=== PATIENT | male | born 1960 | race Caucasian/White ===

== ENCOUNTER 2019-02-02 07:10 | Outpatient (CLI) | payer OTHER, SELFPAY ==
[2019-02-02 07:44] LABS: HCT 44.8 % (40.0-50.0); HGB 15.3 g/dL (13.5-17.5); Mean Corp. HGB Concentration 34.2 g/dL (32.0-36.0); Mean Corpuscular Hemoglobin 32.3 pg (27.0-33.0); Mean Corpuscular Volume 94.5 fL (80-95); Mean Platelet Volume 8.9 fL (8.0-11.0); Platelet Count 265 x1000/uL (130-400); RBC 4.74 m/cumm (4.50-6.00); RBC Distribution Width 12.6 % (11.8-14.1); White Blood Cell Count 3.72 k/cumm (4.4-10.8)
[2019-02-02 08:28] LABS: Absolute Eosinophil Count 0.15 k/cumm (0.0-0.7); Absolute Lymphocyte Count 2.27 k/cumm (1.2-3.4); Absolute Monocyte Count 0.37 k/cumm (0.11-0.7); Absolute Neutrophil Count 0.93 k/cumm (1.2-6.7)
[2019-02-02 08:29] LABS: Diff Comment Manual Differential
[2019-02-02 09:01] LABS: ALT 27 U/L (12-78); AST 23 U/L (15-37); Albumin 3.9 g/dL (3.4-5.0); Alkaline Phosphatase 54 U/L (46-116); Anion Gap 6.9 mmol/L (3-11); BUN 21 mg/dL (7-18); Bilirubin, Total 0.6 mg/dL (0.2-1.0); CO2 30.1 mmol/L (21.0-32.0); Calcium 9.1 mg/dL (8.5-10.1); Chloride 102 mmol/L (98-107); Cholesterol 178 mg/dL (50-200); Glucose 108 mg/dL (70-100); HDL Cholesterol 81 mg/dL (40-60); LDL CHOLESTEROL 82 mg/dL (<100); Potassium 4.1 mmol/L (3.5-5.1); Sodium 139 mmol/L (136-145); Total Protein 6.7 g/dL (6.4-8.2); Triglyceride 61 mg/dL (30-150)
[2019-02-03 09:48] LABS: PSA, Screening 1.1 ng/ml (0-4.5)
== END 2019-02-02 07:30 ==
PROVIDERS: PCP Internal Medicine; Visit Provider Internal Medicine
DX: Z00.00 Encounter for general adult medical examination without abnormal findings (principal); R35.1 Nocturia; C44.91 Basal cell carcinoma of skin, unspecified; L57.0 Actinic keratosis; Z12.5 Encounter for screening for malignant neoplasm of prostate
CPT/HCPCS: 36415; 80053; 80061; 83721; 84153; 85025

== ENCOUNTER 2019-03-27 09:17 | Outpatient (CLI) | payer OTHER, SELFPAY | END 2019-03-27 09:37 | PROVIDERS: PCP Internal Medicine; Visit Provider Internal Medicine | DX: Z00.00 Encounter for general adult medical examination without abnormal findings (principal) | CPT/HCPCS: 36415; 84443 ==

== ENCOUNTER 2020-03-16 04:40 | Outpatient (CLI) | payer OTHER, SELFPAY ==
[2020-03-16 10:34] LABS: HCT 45.6 % (40.0-50.0); HGB 15.8 g/dL (13.5-17.5); Mean Corp. HGB Concentration 34.6 g/dL (32.0-36.0); Mean Corpuscular Hemoglobin 32.2 pg (27.0-33.0); Mean Corpuscular Volume 93.1 fL (80-95); Mean Platelet Volume 8.8 fL (8.0-11.0); Platelet Count 261 x1000/uL (130-400); RBC Distribution Width 12.5 % (11.8-14.1); White Blood Cell Count 4.78 k/cumm (4.4-10.8)
[2020-03-16 10:50] LABS: Hemoglobin A1C 5.4 % (3.8-5.6)
[2020-03-16 11:32] LABS: Calculated LDL 94 mg/dL (<100); Cholesterol 192 mg/dL (<200); HDL Cholesterol 88 mg/dL (40-60); Triglyceride 53 mg/dL (<150)
[2020-03-17 10:45] LABS: PSA, Screening 0.9 ng/mL (0.0-4.5)
== END 2020-03-16 05:00 ==
PROVIDERS: PCP Nurse Practitioner; Visit Provider Nurse Practitioner
DX: Z13.1 Encounter for screening for diabetes mellitus (principal); Z12.5 Encounter for screening for malignant neoplasm of prostate; D72.819 Decreased white blood cell count, unspecified; E78.5 Hyperlipidemia, unspecified
CPT/HCPCS: 36415; 80061; 84153; 85027; 83036

== ENCOUNTER 2021-03-06 03:31 | Outpatient (CLI) | payer OTHER, SELFPAY ==
[2021-03-06 22:43] LABS: PSA, Screening 0.9 ng/mL (0.0-4.5)
== END 2021-03-06 03:32 | disposition home or self-care (01) ==
LOC: LOS 03:32
PROVIDERS: PCP Nurse Practitioner; Visit Provider Nurse Practitioner
DX: Z12.5 Encounter for screening for malignant neoplasm of prostate (principal)
CPT/HCPCS: 36415; 84153

== ENCOUNTER 2021-07-09 10:07 | Outpatient (CLI) | payer OTHER, SELFPAY ==
--- NOTE | 2021-07-09 09:30 | DI.RAD_ITS ---
Exam(s) XR KNEE RT 4V AP,LAT,RADHAMES,PAT EXAM: XR KNEE RT 4V AP,LAT,RADHAMES,PAT CLINICAL HISTORY: R knee pain TECHNIQUE: COMPARISON: No exams were available for comparison FINDINGS: Four views were obtained. There is a probable small knee joint effusion. The cartilaginous joint sp aces are well maintained. No bony or soft tissue abnormality seen. IMPRESSION: RADIATION DOSE DELIVERED: Total DLP
== END 2021-07-09 10:08 | disposition home or self-care (01) ==
LOC: DIORS 10:07
PROVIDERS: Visit Provider Physician Assistant
DX: M25.561 Pain in right knee (principal); M25.461 Effusion, right knee
CPT/HCPCS: 73564

== ENCOUNTER 2021-07-25 02:31 | Outpatient (CLI) | payer OTHER, SELFPAY ==
--- NOTE | 2021-07-25 08:00 | DI.MRI_ITS ---
Exam(s) MR LOWER JOINT RT WO EXAM: MR LOWER JOINT RT WO CLINICAL HISTORY: PAIN,INTERNAL DERANGEMENT, M23.91 TECHNIQUE: Multiplanar multisequence MRI of the knee was performed. COMPARISON: Prior knee x-rays performed 07/09/2021 reviewed FINDINGS: EFFUSION: There is a moderate-sized joint effusion. There is no Vu cyst in the popliteal fossa. MARROW:No evidence of fracture prominent bone contusion. However, in the posterior aspect the latera l femoral condyle there are 2 similar appearing adjacent subcortical lesions which probably parallel osteochondral defects. These both measure approximately 2.2 cm length by 0.9 cm wide by 0.4 cm deep. There is surrounding T2 hyperechoic linear signal. There are no significant osseous lesions. PATELLOFEMORAL COMPARTMENT: The quadriceps tendon is intact. The patellar ligament is intact. There is no significant thinning of the retropatellar cartilage. At the mid aspect of the retropatel lar cartilage there is small focus of signal abnormality but this is not associated with significant thinning although there does appear to be a tiny 1 millimeter focus of increased signal in the subart icular posterior patella at this level..There is no intraosseous signal to suggest recent patellar di slocation. There are no patellar retinacular tears. CRUCIATE LIGAMENTS: The anterior cruciate ligament is intact.The posterior cruciate ligament is intac t. MEDIAL COMPARTMENT/MEDIAL MENISCUS: There is an oblique tear in the posterior horn of the medial meni scus. No bucket-handle configuration. Anterior horn appears intact. There are no chondral defects, osteochondral defects, subarticular marrow edema, nor osteophytes evid ent. MEDIAL COLLATERAL LIGAMENT: Intact LATERAL COMPARTMENT/LATERAL MENISCUS: There is a tear of the posterior horn of the lateral meniscus a t the root level.Anterior horn lateral meniscus appears intact.The above described 2 adjacent finding s in the most posterior Aspect of the weight-bearing surface of the lateral femoral condyle are noted. ILIOTIBIAL BAND: Intact LATERAL COLLATERAL LIGAMENT COMPLEX: The fibular collateral ligament is intact. The biceps femoris t endon is intact.Popliteus muscle and tendon are intact. IMPRESSION: 1. There are tears in the posterior horns of both menisci, as described above. 2. Cruciate and collateral ligaments are intact. 3. There appear to be 2 adjacent osteochondral defects on the most posterior aspect of the weight-fran ring surface of the lateral femoral condyle 4. Moderate-sized joint effusion. No Vu cyst. DATA REPOSITORY:
== END 2021-07-25 02:51 ==
PROVIDERS: Visit Provider Student in an Organized Health Care Education/Training Program
DX: M25.561 Pain in right knee (principal); M25.461 Effusion, right knee; M23.8X1 Other internal derangements of right knee; S83.281A Other tear of lateral meniscus, current injury, right knee, initial encounter; S83.241A Other tear of medial meniscus, current injury, right knee, initial encounter
CPT/HCPCS: 73721

== ENCOUNTER 2022-02-26 14:48 | Outpatient (REF) | payer OTHER, SELFPAY ==
[2022-02-26 14:59] LABS: Abs Immature Grans 0.01 10^3/uL (0.0-0.06); Absolute Basophil Count 0.05 10^3/uL (0.0-0.2); Absolute Eosinophil Count 0.09 10^3/uL (0.0-0.7); Absolute Lymphocyte Count 2.05 10^3/uL (1.2-3.4); Absolute Monocyte Count 0.42 10^3/uL (0.1-0.8); Absolute Neutrophil Count 2.08 10^3/uL (1.2-6.7); Basophils % 1.1; Eosinophils % 1.9; HCT 45.4 % (40.0-50.0); HGB 14.9 g/dL (13.5-17.5); Immature Grans % 0.2; Lymphocytes % 43.6; MCH 31.4 pg (27.0-33.0); MCHC 32.8 % (32.0-36.0); MCV 96 fL (80-95); MPV 9.1 fL (8.0-11.0); Monocytes % 8.9; Neutrophils % 44.3; Platelet Count 265 10^3/uL (130-400); RBC 4.75 10^6/uL (4.36-5.78); RDW-SD 45.6 fL
[2022-02-26 23:07] LABS: PSA, Screening 1.3 ng/mL (<=4.5)
[2022-02-27 10:08] LABS: HIV-1/2 Ag & Ab Screen Negative (Negative)
[2022-02-27 10:23] LABS: Hepatitis C Ab w Rflx HCV PCR Negative (Negative)
== END 2022-02-26 14:49 | disposition home or self-care (01) ==
LOC: NCHCN 14:48
PROVIDERS: PCP Family Medicine; Visit Provider Family Medicine
DX: Z00.00 Encounter for general adult medical examination without abnormal findings (principal); D72.819 Decreased white blood cell count, unspecified; Z12.5 Encounter for screening for malignant neoplasm of prostate; Z11.4 Encounter for screening for human immunodeficiency virus [HIV]; Z11.59 Encounter for screening for other viral diseases
CPT/HCPCS: 84153; 86803; 87389; 85025

== ENCOUNTER 2022-03-04 09:11 | Day surgery (SDC) | payer OTHER, SELFPAY ==
--- NOTE | 2022-03-04 06:30 | W.ANESPRE ---
General Info Date of Service Date Performed: 03/04/22 Height: 5 ft 10 in Weight: 65.317 kg Body Mass Index (BMI): 20.6 Surgical Procedure: Operation Date: 03/04/22 10:35 Proposed Procedure Side Surgeon p Colonoscopy Juanis Durán MD Meds Allergies and Home Medications Allergies Allergy/AdvReac Type Severity Reaction Status Date / Time No Known Allergies Allergy Unverified 03/04/22 09:32 Home Medication Medication Instructions Recorded hydrocortisone 2.5 % topical cream 1 applic DE QD-BID PRN itching #30 04/11/20 with perineal applicator grams (Anusol-HC) bisacodyl 5 mg tablet,delayed 5 mg PO ONCE #4 tabs 02/28/22 release (Dulcolax (bisacodyl)) polyethylene glycol 3350 17 17 g PO ONCE #238 grams 02/28/22 gram/dose oral powder Current Visit Medications: Current Medications Generic Name Dose Route Start Last Admin Trade Name Freq PRN Reason Stop Dose Admin Ringer's Solution 1,000 mls @ 80 mls/hr 03/04/22 06:00 IV 03/28/22 23:59 INFUSION SARAHI IV Miscellaneous Supplies 1 each 03/04/22 06:00 Iv Access IV 03/28/22 23:59 DIRECTED SARAHI Sodium Chloride 0 ml 03/04/22 06:00 Normal Saline Flush 10 Ml Syr IV 03/28/22 23:59 PRN PRN Sodium Chloride 0 ml 03/04/22 06:00 Normal Saline 10 Ml Vial IJ 03/28/22 23:59 DIRECTED PRN Sterile Water 0 ml 03/04/22 06:00 Water,Injection,Sterile 10 Ml Vial IJ 03/28/22 23:59 DIRECTED PRN PFSH Active Problems Active Problems: Problem Status Onset Code Screening for colon cancer Z12.11 Medical History Medical History (Updated 03/04/22 @ 09:32 by Susi Dias RN) Actinic keratosis Dermatology at his request. He is basically extremely healthy for his age and there are no serious problems today. Basal cell carcinoma of skin Benign familial tremor Bimalleolar fracture of left ankle (10/05/14) History of fracture of left ankle Internal derangement of right knee depo medrol injection 02/11/22 Lipoma Lower urinary tract symptoms (LUTS) Osteoarthritis pt. denies Surgical History Surgical History SURGERY -2013 Tobacco Smoking/Tobacco Use Status: Never Passive smoking exposure: Yes Second hand exposure: Yes Alcohol Alcohol Intake: current Alcohol intake frequency: a few times a week Alcohol type: beer and wine Substance Use Substance use: Never Substance use type: does not use Vital Signs and Lab Results Vital Signs Most Recent Vital Signs in EMR: Temp Pulse Resp BP Pulse Ox 36.4 C L 73 17 126/86 100 03/04/22 09:34 03/04/22 09:34 03/04/22 09:34 03/04/22 09:34 03/04/22 09:34 Lab Results Blood Type / Crossmatch: No Data to Display Complete Blood Count: White Blood Count 4.70 10^3/uL (4.4-10.8) 02/26/22 07:35 Red Blood Count 4.75 10^6/uL (4.36-5.78) 02/26/22 07:35 Hemoglobin 14.9 g/dL (13.5-17.5) 02/26/22 07:35 Hematocrit 45.4 % (40.0-50.0) 02/26/22 07:35 Platelet Count 265 10^3/uL (130-400) 02/26/22 07:35 Complete Metabolic Panel: No Data to Display Liver Function Panel: No Data to Display Coagulation Panel: No Data to Display Cardiac Panel: No Data to Display Arterial Blood Gas: No Data to Display Venous Blood Gas: No Data to Display Pancreas Panel: No Data to Display Thyroid Panel: No Data to Display Infectious Disease: HIV (1&2) Ag and Ab, 4th Generation Negative (Negative) 02/26/22 07:35 Hepatitis C Antibody Negative (Negative) 02/26/22 07:35 Blood Cultures: No Data to Display Toxicology Panel: No Data to Display Anesthesia Assessment and Plan Anesthesia History Personal History: No History of Anesthesia Complications Family History: No Family History of Anesthesia Complications Exercise Tolerance Exercise Tolerance: Metabolic Equivalents>4 Pertinent Negatives Pertinent Negatives: No Symptoms of GERD, No Major Cardiovascular Symptoms or Complaints, No Major Pulmonary Symptoms or Complaints and No History of CVA/TIA Cardiac & Pulmonary Exam Cardiac Exam: Normal S1/S2 Heart Sounds Pulmonary Exam: Clear Bilateral Breath Sounds Implantable Cardiac Device Does patient have a Pacemaker or an ICD?: No Airway Exam Known Difficult Airway: No Mallampati Class: 1 Mouth Opening: Normal (> 3cm) Thyromental Distance: Greater than 3 cm Neck Range of Motion: Full ROM Neck Circumference: Normal Teeth Condition: Normal Dentition ASA Classification ASA Score: ASA 2 Emergency Case?: No NPO Status NPO Status: NPO Clears >2 hours, Solids >8 hours Anesthesia Plan Resuscitation Status: Full Code Anesthesia Technique: General Anesthesia Airway Planned: Natural Airway Monitors Used: Standard Monitors Preoperative Comments:: 62 yo male for screening colonoscopy, 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 Sig PMHx: never smoker, occ EToH. Previous Anes: 4 LMA,
--- NOTE | 2022-03-04 07:05 | W.COLOREPORT ---
Colonoscopy Report Date of procedure: 03/04/22 Pre-op diagnosis general: Colon Cancer Screening Post-op diagnosis procedure note: other (polyps) Procedure: Colonoscopy with polypectomy Surgeon: Juanis Durán Anesthesia Type: General:No Airway Estimated blood loss (mL): 3 Pathology: other (ascending and descending colon polyp) Complications: None Disposition: same day Indications: The patient is here for Colonoscopy pre-op. His last screening was in 2010 and was unremarkable. Per notes from the old chart patient followed up in November of 2011 reporting hemorrhoid issues. He under went an I&D in February of 2012. The patient is very concerned for the potential recurrence of hemorrhoids. Encouraged use of Vaseline prior to and following BMs during bowel prep to provie a barrier. ? He has no family history of colon cancer. He has not had any bowel habit changes. -Discussed colonoscopy bowel prep as well as the procedure. Discussed possible complications of the procedure to include bleeding, pain, perforation, missed small lesion/polyp, sore throat, aspiration and adverse reaction to the medications. Questions were answered to patient?s satisfaction. No guarantees were implied or given.? Patient is requesting to have conscious sedation for his procedure, so that he can observe the procedure. Prep: Miralax/Dulcolax Procedure Start Time: 11:33 Procedure End Time: 12:31 Findings: 2 small polyps. Procedure Description: After informed consent was obtained the patient was taken to the procedure room and placed in a left decubitous position. Monitors were applied and a time out was done. The patients name, date of , procedure, allergies to medications and metal in their body was reviewed. A rectal exam was done. External exam was normal. Internal exam revealed a normal sphincter tone and no palpable masses. The prostate felt smooth but enlarged. The scope was then introduced and retro-flexed. No internal hemorrhoids, polyps or masses were identified on retro-flexion. The scope was then advanced to the cecum with some difficulty due to a tortuous colon. There were a lot of seeds and nuts left in the scope. The scope was clogged twice. The ileocecal valve and appendiceal orifice were identified. The prep was adequate. The scope was then slowly retracted over >6 minutes back into the rectum. Polyps were removed with cold forceps in the ascending colon x1 and descending colon x1. There was no diverticulosis noted. The scope was removed and the patient was taken back to Same day surgery in stable condition. The patient tolerated the procedure well and there were no immediate complications.
--- NOTE | 2022-03-04 07:06 | W.PM.DSUDISC ---
Discharge Plan Disposition Patient Disposition: HOME Condition: Good Discharge Details Reason For Visit: Colonoscopy Attending Provider: Juanis Durán Primary Care Provider: Alejandro Joyce Home Meds and New Rx's Prescriptions: Continued hydrocortisone [Anusol-HC] 2.5 % cream with perineal applicator 1 applic NE QD-BID PRN (Reason: itching) Qty: 30 0RF Discontinued bisacodyl [Dulcolax (bisacodyl)] 5 mg tablet,delayed release (DR/EC) 5 mg PO ONCE Qty: 4 0RF Rx Instructions: Take according to provider's instructions for colonoscopy prep. polyethylene glycol 3350 17 gram/dose powder 17 g PO ONCE Qty: 238 0RF Rx Instructions: To be taken as directed by prescriber's office for colonoscopy prep. Discharge Instructions Instructions: Colorectal Polyps (DC) Additional Instructions: Findings: polyps x2 Follow up: 5 years Please call if you develop: fevers >101.5 Nausea or Vomiting Abdominal pain that is not transient Rectal bleeding that is more then a tbsp A hard abdomen and inability to pass gas DAY SURGERY UNIT POST ENDOSCOPY INSTRUCTIONS Instructions for everyone who is given Anesthesia: For your safety, please do the following for the next 24 Hours: a. Do not drive or operate dangerous equipment b. Do not drink alcohol beverages or use any recreational drugs for the first 24 hours or while taking pain medications. The medications in your body may have a reaction that can be dangerous. c. Do not make any important decisions or sign any important papers 1. Generally there are no restrictions on your activity after a day or so has gone by, but you may feel a bit fatigued for a few days. 2. After you arrive home you may have a light meal and return to a normal diet as you can tolerate it without feeling sick to your stomach. 3. After surgery, you may feel pain or discomfort. This should be only transient, but if it persists please contact your doctor. 4. If there are any questions regarding the findings of your procedure, please feel free to contact your doctor. 6. If you are unable to contact your doctor with a problem, contact the hospital at [phone]. 7. Continue all your regular medications unless directed otherwise. I understand the above instructions and have no questions. Signature of Patient or Responsible Adult Escort Date/Time Name of Responsible Adult Escort Signature of Nurse Date/Time Activity:: Activity as Tolerated Diet:: As Tolerated Discharge Orders Discharge Orders: Discharge Order (Routine); Ordered 03/04/22 Ordered By: Juanis Durán
[2022-03-04 09:34] VITALS: BP 126/86; PULSE 73; RESP 17; TEMP 36.4; O2SAT 100
[2022-03-04] MEDS: Lactated Ringers 1,000 ML 80 ML IV (10:02)
[2022-03-04 11:21] VITALS: BMI 20.6
--- NOTE | 2022-03-04 12:15 | BOWEL_PTH ---
PATIENT: Max eBll LOC: [facility] U#:[id number] AGE/SX: 62/M ROOM: RE03/04/[address]: Juanis Durán MD : 1960 BED: DIS: 03/04/2022 SPEC #: [id number] RECD: 03/04/22 13:14 STATUS: RD REQ #: [id number] YADI: 03/04/22 12:[address]: Juanis Durán DEPT: Surgical Specimen RECD BY: Isabel Martin ENTERED: 03/04/22 13:14 SP TYPE: Bowel OTHR DR: Alejandro Joyce Tissues: 1 - BIOPSY BOWEL 2 - BIOPSY BOWEL Procedures: GROSS AND MICRO LEVEL 4 Comments: [id number]
--- NOTE | 2022-03-04 12:36 | W.ANESPOSTOP ---
Postoperative Evaluation Date, Time and Location Date Performed: 03/04/22 Time Performed: 12:36 Patient Location: Day Surgery Unit Vital Signs Most Recent Imported Vital Signs: Most Recent Vital Signs Temp Pulse Resp BP Pulse Ox 36.4 C L 73 17 126/86 100 03/04/22 09:34 03/04/22 09:34 03/04/22 09:34 03/04/22 09:34 03/04/22 09:34 Pain Score Most Recent Pain Score: Most Recent Pain Score Pain Level 0 03/04/22 09:34 Assessment Mental Status: Awake (Alert & Oriented to Patient Baseline) Airway and Respiratory Function: Patent airway with normal (patient baseline) respiratory exam Cardiovascular Function: Hemodynamically Stable Hydration Status: Adequately Hydrated Nausea & Vomiting: No Nausea or Vomiting Pain: Pt. Denies Any Pain Peripheral Nerve Block: Patient did not receive a nerve block
[2022-03-04 12:42] VITALS: BP 107/71; PULSE 69; RESP 18; TEMP 36; O2SAT 100
[2022-03-04 13:05] VITALS: BP 111/63; PULSE 84; RESP 18; TEMP 36.5; O2SAT 100
== END 2022-03-04 13:10 | disposition home or self-care (01) ==
PROVIDERS: PCP Family Medicine; Visit Provider Surgery
PROC: 0DJD8ZZ Inspection of Lower Intestinal Tract, Via Natural or Artificial Opening Endoscopic (ICD-10-PCS; CPT 45378; principal; 2022-03-04 10:30)
DX: Z12.11 Encounter for screening for malignant neoplasm of colon (principal); K63.5 Polyp of colon
CPT/HCPCS: 45380; 88305

== ENCOUNTER 2022-03-06 12:34 | Outpatient (REF) | payer OTHER, SELFPAY ==
[2022-03-06 22:16] LABS: Vitamin B12 327 pg/mL (193-986)
== END 2022-03-06 12:35 | disposition home or self-care (01) ==
LOC: NCHCN 12:34
PROVIDERS: PCP Family Medicine; Visit Provider Family Medicine
DX: D75.89 Other specified diseases of blood and blood-forming organs (principal)
CPT/HCPCS: 82607

== ENCOUNTER 2023-02-25 15:10 | Outpatient (REF) | payer MEDICARE, SELFPAY ==
[2023-02-25 15:36] LABS: Absolute Basophil Count 0.05 10^3/uL (0.0-0.2); Absolute Eosinophil Count 0.07 10^3/uL (0.0-0.7); Absolute Lymphocyte Count 2.28 10^3/uL (1.2-3.4); Absolute Monocyte Count 0.51 10^3/uL (0.1-0.8); Absolute Neutrophil Count 1.81 10^3/uL (1.2-6.7); Basophils % 1.1; Eosinophils % 1.5; HCT 49.1 % (40.0-50.0); HGB 16.5 g/dL (13.5-17.5); Lymphocytes % 48.3; MCH 32.7 pg (27.0-33.0); MCHC 33.6 % (32.0-36.0); MCV 97 fL (80-95); MPV 9.2 fL (8.0-11.0); Monocytes % 10.8; Neutrophils % 38.3; Platelet Count 289 10^3/uL (130-400); RBC 5.05 10^6/uL (4.36-5.78); RDW 12.3 % (11.8-14.1); WBC 4.72 10^3/uL (4.4-10.8)
[2023-02-25 16:17] LABS: Calculated LDL 95 mg/dL (<100); Cholesterol 189 mg/dL (<200); Glucose 92 mg/dL (74-106); HDL Cholesterol 80 mg/dL (40-60); Triglyceride 70 mg/dL (<150)
[2023-02-25 16:31] LABS: Vitamin B12 > 2000 pg/mL (193-986)
[2023-02-26 09:18] LABS: PSA, Screening 1.7 ng/mL (<=4.5)
== END 2023-02-25 15:11 | disposition home or self-care (01) ==
LOC: NCHCN 15:10
PROVIDERS: PCP Family Medicine; Visit Provider Family Medicine
DX: D75.89 Other specified diseases of blood and blood-forming organs (principal); Z00.00 Encounter for general adult medical examination without abnormal findings
CPT/HCPCS: 80061; 82947; 84153; 82607; 85025

== ENCOUNTER 2024-03-11 00:50 | Outpatient (CLI) | payer MEDICARE, OTHER, SELFPAY ==
[2024-03-11 12:11] LABS: Absolute Basophil Count 0.05 10^3/uL (0.0-0.2); Absolute Eosinophil Count 0.09 10^3/uL (0.0-0.7); Absolute Lymphocyte Count 2.39 10^3/uL (1.2-3.4); Absolute Monocyte Count 0.49 10^3/uL (0.1-0.8); Absolute Neutrophil Count 1.69 10^3/uL (1.2-6.7); Basophils % 1.1 %; Eosinophils % 1.9 %; HCT 46.3 % (40.0-50.0); HGB 15.6 g/dL (13.5-17.5); Lymphocytes % 50.7 %; MCH 32.6 pg (27.0-33.0); MCHC 33.7 % (32.0-36.0); MCV 97 fL (80-95); MPV 9.7 fL (8.0-11.0); Monocytes % 10.4 %; Neutrophils % 35.9 %; Platelet Count 272 10^3/uL (130-400); RBC 4.79 10^6/uL (4.36-5.78); RDW 12.4 % (11.8-14.1); RDW-SD 44.9 fL; WBC 4.71 10^3/uL (4.4-10.8)
[2024-03-11 12:32] LABS: Calculated LDL 77 mg/dL (<100); Cholesterol 169 mg/dL (<200); HDL Cholesterol 81 mg/dL (40-60); TSH (W/Ref FT4) 1.73 uIU/mL (0.36-3.74); Triglyceride 59 mg/dL (<150)
[2024-03-11 22:38] LABS: PSA, Screening 1.6 ng/mL (<=4.5)
== END 2024-03-11 00:51 | disposition home or self-care (01) ==
LOC: LBO 10:40 → NCHCO 10:58
PROVIDERS: PCP Family Medicine; Visit Provider Student in an Organized Health Care Education/Training Program
DX: Z12.5 Encounter for screening for malignant neoplasm of prostate (principal); D72.819 Decreased white blood cell count, unspecified; Z13.220 Encounter for screening for lipoid disorders; Z13.228 Encounter for screening for other metabolic disorders
CPT/HCPCS: 36415; 80061; 84153; 84443; 85025

== ENCOUNTER 2025-03-07 13:22 | Outpatient (CLI) | payer MEDICARE, SELFPAY ==
[2025-03-07 12:17] LABS: Abs Immature Grans 0.01 10^3/uL (0.0-0.06); Absolute Basophil Count 0.04 10^3/uL (0.0-0.2); Absolute Eosinophil Count 0.03 10^3/uL (0.0-0.7); Absolute Lymphocyte Count 2.09 10^3/uL (1.2-3.4); Absolute Monocyte Count 0.48 10^3/uL (0.1-0.8); Absolute Neutrophil Count 3.11 10^3/uL (1.2-6.7); Basophils % 0.7 %; Eosinophils % 0.5 %; HCT 44.4 % (40.0-50.0); HGB 15.1 g/dL (13.5-17.5); Immature Grans % 0.2 %; Lymphocytes % 36.3 %; MCH 32.3 pg (27.0-33.0); MCV 95 fL (80-95); Monocytes % 8.3 %; Platelet Count 246 10^3/uL (130-400); RBC 4.67 10^6/uL (4.36-5.78); RDW 12.4 % (11.8-14.1); RDW-SD 43.5 fL; WBC 5.76 10^3/uL (4.4-10.8)
[2025-03-07 13:00] LABS: Vitamin B12 525 pg/mL (193-986)
[2025-03-08 19:12] LABS: PSA, Screening 1.6 ng/mL (<=4.5)
== END 2025-03-07 13:23 | disposition home or self-care (01) ==
LOC: LBO 13:25
PROVIDERS: PCP Family Medicine; Visit Provider Student in an Organized Health Care Education/Training Program
DX: D72.819 Decreased white blood cell count, unspecified (principal); Z12.5 Encounter for screening for malignant neoplasm of prostate; R53.83 Other fatigue
CPT/HCPCS: 36415; 84153; 82607; 85025

== ENCOUNTER → 2025-05-18 10:57 | Outpatient (BNVA) | payer MEDICARE, OTHER, SELFPAY | PROVIDERS: PCP Student in an Organized Health Care Education/Training Program; Referring Provider Student in an Organized Health Care Education/Training Program; Visit Provider Surgery | DX: Z12.11 Encounter for screening for malignant neoplasm of colon (principal); Z86.0101 Personal history of adenomatous and serrated colon polyps | CPT/HCPCS: S0285 ==

== ENCOUNTER 2025-05-31 06:07 | Day surgery (SDC) | payer MEDICARE, OTHER, SELFPAY ==
--- NOTE | 2025-05-30 17:49 | W.PM.DSUDISC ---
Date of service: 05/31/25 Discharge Plan Disposition Patient Disposition: Home Condition: Good Discharge Details Reason For Visit: screening colonoscopy Attending Provider: Mau Pacheco Primary Care Provider: Javon Randall Home Meds and New Rx's Prescriptions: Continued valacyclovir 1 gram tablet 1,000 mg PO BID Rx Instructions: take two tablets by mouth twice a day for one day- repeat as needed for outbreaks magnesium 250 mg tablet 250 mg PO DAILY acyclovir [Zovirax] 5 % cream 1 applic topical ONCE Rx Instructions: apply to the affected area by topical route every 3 hrs 6 times per day turmeric-turmeric root extract 450-50 mg capsule PO Discontinued bisacodyl [Dulcolax (bisacodyl)] 5 mg tablet,delayed release (DR/EC) 5 mg PO ONCE Qty: 8 0RF Rx Instructions: take per colonoscopy instructions polyethylene glycol 3350 17 gram/dose powder 238 g PO ONCE Qty: 238 0RF Rx Instructions: take per colonoscopy instructions Discharge Instructions Instructions: Colon polyps Additional Instructions: Angel, it was nice meeting you today, I am glad you are comfortable through the procedure. Things went very smoothly. As you saw, I did remove 1 small bit of tissue, that I think might be a polyp. As we discussed during the procedure, this will be sent to the pathologist for them to review. Those results will take about a week or so to get back. If that is a polyp, we will use that information to help guide the timing of future colonoscopies. My office will let you know once we have that information. If you need anything or have any questions at all, please do not hesitate to ask at any time. 1. If tolerated, consume a soft, low fiber diet for 1-2 days. 2[address] Do not drive, drink alcohol, operate machinery, make critical decisions, or do activities that require coordination or balance for 24 hours. 3. Because air was put into your colon during the procedure, expelling air from your rectum (passing gas or farting) is normal. 4. You may not have a bowel movement for 1-3 days because of the colonoscopy prep. This is normal. 5. Go directly to the emergency room if you notice any of the following: Develop chills (warm to touch), or if you have a thermometer and your temperature is above 101 Difficulty breathing or difficultly swallowing Persistent vomiting Severe abdominal pain, other than gas cramps Severe chest pain Black, tarry stools Any bleeding ? exceeding one tablespoon 6. Call your physician if the site where your intravenous was started becomes red, swollen, painful, and warm to touch. 7. Your physician has reviewed your pre-procedure medications. Please continue to take those medications as previously ordered. You will be given specific information/education regarding any changes to your medications before leaving. Activity:: Activity as Tolerated Diet:: As Tolerated Discharge Orders Discharge Orders: Discharge Order (Routine); Ordered 05/30/25 Ordered By: Mau Pacheco DS: Diagnosis Discharge Diagnosis (1) Encounter for screening colonoscopy: Status: Acute Asessment and Plan: Follow-up on polypectomy results
--- NOTE | 2025-05-30 17:51 | COLE_ITS ---
Date of service: 05/31/25 Time of Service: 08:27 Colonoscopy Report Date of procedure: 05/31/25 Pre-op diagnosis general: screening colonoscopy Post-op diagnosis procedure note: other (Colon polyp) Procedure: colonoscopy with polypectomy Surgeon: Mau Pacheco Anesthesia Type: General:No Airway Estimated blood loss (mL): 5 Pathology: other (0.25 cm flat polyp at 45 cm) Complications: None Disposition: same day Indications: Max is a 65 year old man with a history of adenomatous polyps who needs his next screening colonoscopy Prep: Miralax/Dulcolax Procedure Start Time: 07:36 Procedure End Time: 08:14 Retraction Time: 10 Findings: 0.25 cm polyp at 45 cm Procedure Description: With Max in the left lateral decubitus position, I began by performing an external anorectal exam.? Perineum and skin were normal, as was the anal verge.? There was no evidence of external hemorrhoids.? Next, I performed a digital rectal exam.? I did not appreciate any abnormal findings.? Next, I advanced a colonoscope into the rectal vault.? I performed retroflexion.? This appeared normal.? Using irrigation, I then advanced the colonoscope beyond the rectal folds and into the sigmoid colon before advancing towards the cecum.?? The scope was noted to be in the cecum by identification of the ileocecal valve and appendiceal orifice.? I then began withdrawing the colonoscope using repeated irrigation as necessary for full evaluation of the colonic mucosa. Around 45 cm from the anal verge was a 0.25 cm flat polyp. This was removed with cold forceps with minimal bleeding. ?Once the scope was withdrawn to the level of the rectum, great care was taken to examine portions of the rectal folds.? Finally, the scope was withdrawn and the patient was brought to the same-day surgery recovery unit as the anesthetic wore off. ?The findings and instructions were shared with the patient prior to discharge. Rogers Bowel Prep Rogers Bowel Prep Right Colon: 1 Left Colon: 3 Transverse Colon: 3 Total Score: 7
[2025-05-31 06:15] VITALS: BP 124/96; PULSE 70; RESP 16; TEMP 36.4; O2SAT 97
--- NOTE | 2025-05-31 06:19 | W.ANESPRE ---
General Info Date of Service Date Performed: 05/31/25 Height: 5 ft 10 in Weight: 72.575 kg Body Mass Index (BMI): 22.9 Surgical Procedure: Operation Date: 05/31/25 07:35 Proposed Procedure Side Surgeon p Colonoscopy Mau Pacheco MD Meds Allergies and Home Medications Allergies Allergy/AdvReac Type Severity Reaction Status Date / Time No Known Allergies Allergy Unverified 05/31/25 06:33 Home Medication ?Medication ?Instructions ?Recorded acyclovir 5 % topical cream 1 applic topical ONCE 05/04/25 (Zovirax) magnesium 250 mg tablet 250 mg PO DAILY 05/04/25 turmeric 450 mg-turmeric root cap PO 05/04/25 extract 50 mg capsule valacyclovir 1 gram tablet 1,000 mg PO BID 05/04/25 Current Visit Medications: Current Medications Generic Name Dose Route Start Last Admin Trade Name Freq PRN Reason Stop Dose Admin Ringer's Solution 1,000 mls @ 80 mls/hr 05/31/25 06:00 IV 05/31/25 23:59 INFUSION SARAHI IV Miscellaneous Supplies 1 each 05/31/25 06:00 Iv Access IV 05/31/25 23:59 DIRECTED SARAHI Sodium Biphosphate/Sodium Phosphate 133 ml 05/31/25 06:00 Na Phosphate Enema-Adult 133 Ml Btl ND 05/31/25 23:59 DIRECTED PRN Sodium Chloride 0 ml 05/31/25 06:00 Normal Saline Flush 10 Ml Syr IV 05/31/25 23:59 PRN PRN Sodium Chloride 0 ml 05/31/25 06:00 Normal Saline 10 Ml Vial IJ 05/31/25 23:59 DIRECTED PRN Sterile Water 0 ml 05/31/25 06:00 Water,Injection,Sterile 10 Ml Vial IJ 05/31/25 23:59 DIRECTED PRN PFSH Active Problems Active Problems: Problem Status Onset Code Encounter for screening colonoscopy Acute Z12.11 Personal history of adenomatous and serrated colon polyps Acute Z86.0101 Serrated adenoma of colon Acute D12.6 Hyperplastic colon polyp Acute K63.5 Medical History Medical History Essential tremor Leukopenia Basal cell carcinoma History of fracture of left ankle Screening for colon cancer Internal derangement of right knee depo medrol injection 5/16/22 Osteoarthritis pt. denies Benign familial tremor Lower urinary tract symptoms (LUTS) Lipoma Basal cell carcinoma of skin Actinic keratosis Dermatology at his request. He is basically extremely healthy for his age and there are no serious problems today. Bimalleolar fracture of left ankle (10/05/14) Surgical History Surgical History History of colonoscopy (~02/2022) SURGERY ANKLE-2014 Tobacco Smoking/Tobacco Use Status: Never Passive smoking exposure: Yes Second hand exposure: Yes Alcohol Alcohol Intake: current Alcohol intake frequency: a few times a week Alcohol type: beer and wine Substance Use Substance use: Never Substance use type: does not use Anesthesia Assessment and Plan Anesthesia History Personal History: No History of Anesthesia Complications Family History: No Family History of Anesthesia Complications Exercise Tolerance Exercise Tolerance: Metabolic Equivalents>4 Cardiac & Pulmonary Exam Cardiac Exam: Normal S1/S2 Heart Sounds Pulmonary Exam: Clear Bilateral Breath Sounds Implantable Cardiac Device Does patient have a Pacemaker or an ICD?: No Airway Exam Known Difficult Airway: No Mallampati Class: 1 Mouth Opening: Normal (> 3cm) Thyromental Distance: Greater than 3 cm Neck Range of Motion: Full ROM Neck Circumference: Normal Teeth Condition: Normal Dentition ASA Classification ASA Score: ASA 2 Emergency Case?: No NPO Status NPO Status: NPO Clears >2 hours, Solids >8 hours Anesthesia Plan Resuscitation Status: Full Code Anesthesia Technique: General Anesthesia Airway Planned: Natural Airway Monitors Used: Standard Monitors Preoperative Comments:: 65 yo for colo. Does not want anesthesia. He was consented for back up anes. He did well the last time. States that he always gets sick, like the flu, after anesthesia. Sig PMHx: never smoker, occ EtOh Previous Anes: - colo, no sedation. no issues.
[2025-05-31] MEDS: Na Phosphate Enema-Adult 133 ML BTL PR ×2 (06:40→07:00)
[2025-05-31] MEDS: Lactated Ringers 1,000 ML 80 ML IV (07:27)
--- NOTE | 2025-05-31 08:06 | BOWEL_PTH ---
PATIENT: Max Bell LOC: [facility] U#:[id number] AGE/SX: 65/M ROOM: RE05/31/[address]: Mau Pacheco MD : 1960 BED: DIS: 05/31/2025 SPEC #: [id number] RECD: 05/31/25 12:34 STATUS: RD RE #: [id number] YADI: 05/31/25 08:[address]: Mau Pacheco DEPT: Surgical Specimen RECD BY: Isabel Martin ENTERED: 05/31/25 12:35 SP TYPE: Bowel OTHR DR: Javon Randall Tissues: 1 - BIOPSY BOWEL Procedures: GROSS AND MICRO LEVEL 4 Comments: [id number]
[2025-05-31 08:20] VITALS: BP 135/88; PULSE 70; RESP 16; TEMP 36.5; O2SAT 97
[2025-05-31 14:58] VITALS: BMI 22.9
== END 2025-05-31 08:50 | disposition home or self-care (01) ==
PROVIDERS: PCP Student in an Organized Health Care Education/Training Program; Visit Provider Surgery
PROC: 0DJD8ZZ Inspection of Lower Intestinal Tract, Via Natural or Artificial Opening Endoscopic (ICD-10-PCS; CPT 45378; principal; 2025-05-31 07:30)
DX: Z12.11 Encounter for screening for malignant neoplasm of colon (principal); K63.5 Polyp of colon; D12.5 Benign neoplasm of sigmoid colon
CPT/HCPCS: 45380; 88305

== ENCOUNTER 2025-05-31 15:55 | Outpatient (REF) | payer MEDICARE, OTHER, SELFPAY ==
[2025-05-31 19:07] LABS: Abs Immature Grans 0.01 10^3/uL (0.0-0.06); HCT 45.0 % (40.0-50.0); HGB 15.0 g/dL (13.5-17.5); Immature Grans % 0.1 %; MCH 31.5 pg (27.0-33.0); MCHC 33.3 % (32.0-36.0); MCV 95 fL (80-95); MPV 9.2 fL (8.0-11.0); Platelet Count 276 10^3/uL (130-400); RBC 4.76 10^6/uL (4.36-5.78); RDW 12.3 % (11.8-14.1); RDW-SD 43.3 fL; WBC 7.55 10^3/uL (4.4-10.8)
[2025-05-31 19:20] LABS: ALT 25 U/L (16-63); AST 28 U/L (15-37); Albumin 4.0 g/dL (3.4-5.0); Alkaline Phosphatase 59 U/L (46-116); Anion Gap 8.2 mmol/L (3-11); BUN 21 mg/dL (7-18); Bilirubin, Total 0.8 mg/dL (0.2-1.0); CO2 28.8 mmol/L (21.0-32.0); Calcium 9.3 mg/dL (8.5-10.1); Chloride 103 mmol/L (98-107); Estimated GFR 66.28 (mL/min/1.73m2); Glucose 91 mg/dL (74-106); Potassium 4.3 mmol/L (3.5-5.1); Sodium 140 mmol/L (136-145); Total Protein 6.7 g/dL (6.4-8.2)
== END 2025-05-31 15:56 | disposition home or self-care (01) ==
LOC: NCHCN 15:55
PROVIDERS: PCP Student in an Organized Health Care Education/Training Program; Visit Provider Student in an Organized Health Care Education/Training Program
DX: R59.0 Localized enlarged lymph nodes (principal)
CPT/HCPCS: 80053; 85025

== ENCOUNTER 2025-06-07 08:12 | Outpatient (CLI) | payer MEDICARE, OTHER, SELFPAY ==
--- NOTE | 2025-06-07 | DI.US_ITS ---
Exam(s) US SOFT TISSUE HEAD OR NECK EXAM: US SOFT TISSUE HEAD OR NECK CLINICAL HISTORY: ENLARGED LYMPH NODES R59.0 R>L SUNMANDIBULAR LYMPHADENOPATHY ABOUT 1.5 CM. TECHNIQUE: Ultrasound was performed using standard protocol. COMPARISON: No exams were available for comparison FINDINGS: Dedicated ultrasound examination of the area of clinical concern right submandibular region was performed. The only finding here in the area of palpable concern on the right side is a small 6 x 5 mm benign-appearing lymph node. The ipsilateral submandibular gland appears unremarkable. Lower down in the right-side of the neck there is a single small sub cm benign-appearing lymph node measuring 4 x 3 mm. No findings in the thyroid gland. On the opposite side of the neck there is also no significant lymphadenopathy and no abnormal fluid collections. IMPRESSION: Mild findings as above. There is a small benign-appearing 6 x 5 mm lymph node in the area of palpable concern in the right submandibular region. DATA REPOSITORY:
== END 2025-06-07 08:32 ==
LOC: DI 08:12
PROVIDERS: PCP Student in an Organized Health Care Education/Training Program; Visit Provider Student in an Organized Health Care Education/Training Program
DX: R59.0 Localized enlarged lymph nodes (principal)
CPT/HCPCS: 76536